=== PATIENT | male | born 1960 | race Caucasian/White ===

== ENCOUNTER → 2019-05-19 15:05 | Outpatient (CLI) | payer SELFPAY ==
[2019-05-19 17:33] LABS: Absolute Lymphocyte Count 0.92 X10^3/uL (0.83-4.51); Absolute Neutrophil Count 3.1 X10^3/uL (2.0-7.7); Basophil# 0.03 X10^3/uL; Basophil% 0.6 % (0-1); Eosinophil# 0.56 X10^3/uL; Hematocrit 45.7 % (40-54); Hemoglobin 14.9 g/dL (13.0-16.5); Lymphocyte # 0.92 X10^3/ul (4.0); Mean Corp Hgb Conc 32.6 g/dL (32-36); Mean Corpuscular Hgb 31.4 pg (27.0-32.0); Mean Corpuscular Volume 96.2 fL (80-94); Mean Platelet Vol. 11.3 fl (6.2-12.0); Monocyte# 0.44 X10^3/uL; Monocyte% 8.6 % (0-10); NRBC Flagged by Analyzer 0 % (0-5); Neutrophil # 3.13 X10^3/uL (2.7-7.7); Neutrophil % 61.4 % (47-70); Platelet Count 278 K/mm3 (150-450); RBC Distribution Width CV 12.9 % (11.6-14.6); RBC Distribution Width SD 46.2 fl (35.1-43.9); Red Blood Count 4.75 M/mm3 (4.6-6.2); White Blood Count 5.1 K/mm3 (4.4-11.0)
[2019-05-19 18:19] LABS: ALB/GLOB Ratio 1.3 RATIO (0.9-2.4); AST(SGOT) 22 U/L (15-37); Alanine Aminotransfer ALT/SGPT 28 U/L (16-61); Albumin, Serum 4.1 g/dL (3.2-5.0); Alkaline Phosphatase 55 U/L (45-117); Anion Gap 8 (5-15); BUN 16 mg/dL (7-18); BUN/Creat Ratio 18.7 RATIO (10-20); CRP < 2.90 mg/L (0.0-3.0); Calcium,Total 9.2 mg/dL (8.5-10.1); Chloride 108 mmol/L (98-107); Creatinine, Serum 0.85 mg/dL (0.70-1.30); EST Glomerular Filtration Rate 97 mL/min (>60); Est Glom Filt Rate - Afr Amer 118 mL/min (>60); Globulin 3.2 g/dL (2.2-4.2); Glucose 71 mg/dL (74-106); Protein, Total 7.3 g/dL (6.4-8.2); Sodium Level 144 mmol/L (136-145); Thyroid Stim Hormone (TSH) 0.81 uIU/mL (0.358-3.74)
[2019-05-21 21:08] LABS: Endomysial Antibody IgA Negative (Negative)
[2019-05-24 13:53] LABS: Immunoglobulin A 114 mg/dL (90-386); t-Transglutaminase IgA <2 U/mL (0-3)
== END ==
PROVIDERS: Family Provider Family Medicine; PCP Family Medicine; Referring Provider Family Medicine; Visit Provider Family Medicine
DX: R19.7 Diarrhea, unspecified (principal)
CPT/HCPCS: 36415; 80053; 82784; 83516; 84443; 85025; 86140; 86255

== ENCOUNTER 2019-06-16 05:47 | Day surgery (SDC) | payer SELFPAY ==
[2019-05-25 08:29] VITALS: BMI 28.2
--- NOTE | 2019-06-05 02:35 | HP_ITS ---
Intake Vital Signs 05/25/19 Height 5 ft 6 in 05/25/19 Weight: 175 lb 05/25/19 Body Mass Index (BMI) 28.2 05/25/19 Blood Pressure 139/61 H 05/25/19 Blood Pressure Location Rt brachial 05/25/19 Respiratory Rate 18 05/25/19 Pulse Rate 96 Intake Visit Reasons: abd pain, bloating with eating, diarrhea Legal Records Manager Required: No Is patient in pain?: Yes (abdominal pain) Allergies No Known Allergies Allergy (Unverified 05/25/19 08:30) Medications NK 05/25/19 [History Confirmed 05/25/19] PFSH Medical History Abdominal pain (Acute) Bilateral inguinal hernia (BIH) (Acute) Diarrhea (Acute) Surgical History S/P inguinal hernia repair (Acute) Family History Mother Breast cancer Sister Thyroid disorder Social History (Updated 06/05/19 @ 14:35 by Lacho Dominguez MD) Smoking Status: Current some day smoker alcohol intake: current alcohol intake frequency: a few times a month HPI HPI HPI: MIRNA ROSE, is a 58 M who presents to the office today for HPI HPI Surgical H&P: Yes HPI: MIRNA ROSE, is a 58 M who presents to the office today for Screening colonoscopy. Patient has never had a colonoscopy in the past. Patient's note that he has been occasionally having some crampy bloating with meals as well as some abdominal pain. He is also noticed some loose diarrhea like stools over the last 8 to 10 months. ROS General General: No weight change, appetite, fatigue, colon cancer, breast cancer or weakness HEENT HEENT: No difficulty swallowing, eye injury, eye surgery, swollen glands or hoarseness Endo Endocrine: No thyroid disease, diabetes mellitus, thyroid cancer, Hair loss, heat intolerance or cold intolerance Skin Skin: No rash or changing moles Breast Breast: No left breast lump, right breast lump, nipple discharge, breast pain, abnormal mammogram, abnormal US or breast enlargement Musc Musculoskeletal: Yes back problems and arthritis; no rheumatoid arthritis, gout or joint pain Cardio Cardiovascular: Yes murmur; no pacemaker, heart disease, atrial fibrillation, high blood pressure, heart attack, heart stent, palpitations, shortness of breat with exertion or chest pain Psych Psychiatric: No depression, anxiety or hearing voices Resp Respiratory: No shortness of breath, No sleep apnea, No cough, No COPD, No asthma, No emphysema, No wheezing Gastro Gastrointestinal: Yes abdominal pain, No nausea or vomiting, Yes diarrhea, No constipation, No blood in stool, No acid reflux, No hemorrhoids, No ulcers, No gallbladder problem, No black,tarry stools Luis Hematologic: No blood thinners, No blood disorders, No bleeding, No anemia, No blood clots Neuro Neurologic: No system reviewed and no additional complaints, except as docu, No as per HPI, No abnormal walking, No abnormal hearing, No abnormal movements, No abnormal speech, No behavioral changes, No burning sensations, No confusion, No seizure-like activity, No unsteadiness, No dizziness, No localized weakness, No frequent falls, No headache(s), No lack of coordination, No loss of vision, No memory loss, Yes numbness, No other visual disturbances, No radiating pain, No restless legs, No sensory deficit, No fainting, Yes tingling, No tremor(s), No weakness, No other Exam Const General: no acute distress, well developed, well hydrated Orientation: oriented to person, oriented to place, oriented to time [facility] Head: normocephalic, atraumatic Ears: external ears normal Mouth: moist mucous membranes Eyes Sclera: sclerae normal Pupils: normal by confrontation Neck Neck: no lymphadenopathy noted Neck mass: No Thyroid: thyroid normal, symmetrical Chest Chest palpation & inspection: normal inspection of the chest Breast Palpation: No nipple discharge Resp Effort & Inspection: normal respiratory effort Auscultation: clear to auscultation bilaterally Percussion: percussion normal Cardio Rate: regular rate Rhythm: regular rhythm Heart Sounds: murmur GI Palpation: soft, no hepatosplenomegaly, no masses, nontender Rectal Exam: other Other: Rectal exam deferred. Extrem General: normal to inspection, no clubbing, cyanosis or edema Assessment & Plan Problems 1. Encounter for screening colonoscopy Z12.11 Plan I have discussed the above with the patient. I have offered the patient colonoscopy for evaluation. I have explained the risks/benefits of the procedure and described the procedure. I have discussed the risks with the patient, including but not limited to: infection, bleeding, perforation of the GI tract requiring emergency surgery, inability to complete the procedure, injury to any internal organs, complications of anesthesia, etc. - the patient understands and agrees to proceed. I have answered all the patient's questions to the patient's satisfaction and the patient has no further questions. The patient has been given instructions for the colon cleansing preparation. We will be doing random colon biopsies. Coding Level of Care Code Off vis,new,level 3 Diagnoses Encounter for screening colonoscopy Z12.11 06/05/19 1436 <Electronically signed by Lacho frazier MD> Date _ Lacho Dominguez MD I have re-examined the patient. There are no clinical changes since date of exam.
[2019-06-16] VITALS (7 sets, daily range): BP systolic 83–135; BP diastolic 70–96; PULSE 75–82; RESP 16–18; TEMP 36.6–36.8; O2SAT 96–100; BMI 25.0
[2019-06-16] MEDS: Lactated Ringers 1,000 ML 75 ML IV (06:10)
--- NOTE | 2019-06-16 07:00 | COLBX_PTH ---
PATIENT: MIRNA ROSE LOC: EN U#:[id number] AGE/SX: 58/M ROOM: RE06/16/[address]: Dr. Lacho Dominguez MD : 1960 BED: DIS: 06/16/2019 SPEC #: [id number] RECD: 06/16/19 10:44 STATUS: JAMES SUMMER #: [id number] JOYCELYN: 06/16/19 07:[address]: Lacho Dominguez DEPT: SURGICAL PATHOLOGY RECD BY: Tang Chacon ENTERED: 06/16/19 11:35 SP TYPE: COLON BX OTHR DR: Dr. Randy Stark MD Tissues: COLON BIOPSY Procedures: Surgery Specimen Level IV HEADER OPERATION: Colonoscopy (MAC) PRE-OP DIAGNOSIS: Abdominal pain, bloating, diarrhea TISSUE SUBMITTED: Random colon biopsies MICROSCOPIC DIAGNOSIS Colon, random biopsy: Fragments of colonic mucosa, no pathologic diagnosis. SJ:russell 9/19/19 MICROSCOPIC DESCRIPTION Slides are reviewed. GROSS DESCRIPTION Received in fixative is one container labeled with the patient's name and designated random colon biopsy. The specimen consists of multiple irregular fragments of light diaz soft tissue that in aggregate measure 2.5 x 0.6 x 0.1 cm. The specimen is totally submitted in one cassette. / SJ:rg 06/16/19 TC:4 CPT: 58986
--- NOTE | 2019-06-16 07:37 | OP.ENDO_ITS ---
06/16/2019 Randy Stark [address] [place] [address] Re : Colonoscopy procedure for Romel Campbell Dear Dr. Stark This procedure was performed on Sunday, June 16, 2019. My impressions and recommendations are as follows: Impressions : - The entire examined colon is normal. Biopsied. - Non-bleeding internal hemorrhoids. - The examination was otherwise normal. Recommendations : - Discharge patient to home. - Resume previous diet. - Continue present medications. - Await pathology results. - Repeat colonoscopy in 10 years for screening purposes. - Return to my office in 1 week. My findings are described in the full procedure note, which is enclosed. If I can be of further assistance, please feel free to contact me at Doctor phone number(s): , Fax: [phone], Work: . Sincerely, MD Lacho De Dios MD 06/16/2019 7:37:28 AM This report has been signed electronically.
== END 2019-06-16 07:30 | disposition home or self-care (01) ==
LOC: EN 05:48 → AC 05:49
PROVIDERS: Family Provider Family Medicine; PCP Family Medicine; Referring Provider Family Medicine; Visit Provider Surgery
PROC: 0DJD8ZZ Inspection of Lower Intestinal Tract, Via Natural or Artificial Opening Endoscopic (ICD-10-PCS; CPT 45378; principal; 2019-06-16 06:55)
DX: Z12.11 Encounter for screening for malignant neoplasm of colon (principal); K64.8 Other hemorrhoids; R10.9 Unspecified abdominal pain; R14.0 Abdominal distension (gaseous); R19.7 Diarrhea, unspecified; R01.1 Cardiac murmur, unspecified; F17.200 Nicotine dependence, unspecified, uncomplicated
CPT/HCPCS: 45380; 88305; J7120

== ENCOUNTER 2019-12-03 12:50 | Observation (INO) | payer SELFPAY ==
[2019-06-16 06:02] VITALS: BMI 25.0
[2019-12-03] VITALS (9 sets, daily range): BP systolic 135–182; BP diastolic 77–115; PULSE 65–100; RESP 15–24; TEMP 36.7–37; O2SAT 97–100; BMI 27.8; BMI 26.4
--- NOTE | 2019-12-03 12:52 | NURSING ---
NO OLD EKGS
--- NOTE | 2019-12-03 13:02 | EKG12_ITS ---
Test Reason : CP Blood Pressure : / mmHG Vent. Rate : 107 BPM Atrial Rate : 107 BPM P-R Int : 204 ms QRS Dur : 096 ms QT Int : 340 ms P-R-T Axes : 064 078 040 degrees QTc Int : 453 ms Sinus tachycardia Otherwise normal ECG Confirmed by CARISA TRAVIS, NAHEED ([id number]), editor magazine NEHEMIAS GRACE ([id number]) on 12/06/2019 3:36:43 PM Referred By: CHARLOTTE Confirmed By:NAHEED YOUNGER MD
--- NOTE | 2019-12-03 13:02 | ED.DCSUM_ITS ---
History of Present Illness Chief Complaint: Chest Pain Narrative: Presents with chest pain is been on and off for about 6 months he has not had it evaluated today it was worse, it was aching with radiation to his left arm. He does have a family history of coronary artery disease, he is hypertensive on the monitor in the room but tells me he has no history of hypertension or hypercholesterolemia but he does not get routine checkups with his doctor. He is a smoker. He is now pain-free Past Medical History - Allergies and Home Meds Allergies/Adverse Reactions: Allergies No Known Allergies Allergy (Verified 07/16/19 14:28) Primary Care Physician: Randy Stark MD [Primary Care Provider] - Past Medical History: - - None diagnosed, however he does not go to a PCP and get routine blood pressure checks or cholesterol screenings. Smoking Status: Current every day smoker Review of Systems General: Denies: Fever Cardiovascular: Reports: Chest pain. Denies: Palpitations, Heart racing Respiratory: Denies: Dyspnea, Cough, Sputum Gastrointestinal: Denies: Abdominal pain, Nausea Musculoskeletal: Denies: Myalgias, Arthralgias Skin: Denies: Rash Neurological: Denies: Headache, Weakness Psych: Denies: Depression Endocrine: Denies: Polyuria Physical Exam Vital Signs/Narrative: Vital Signs Temp Pulse Resp BP Pulse Ox 12/03/19 12:51 98.2 F 100 20 H 182/104 H 100 General: Well nourished, Well developed Eyes: Negative for: Pale conjunctiva ENT: Moist mucous membranes Cardiovascular: Regular rate, Regular rhythm Abdomen: Soft, Nontender, Nondistended Back: Nontender, Normal Inspection Skin: Normal color, No rash Neurological: Alert, Oriented x3 Psychological: Normal affect Diagnostic/Tx/Re-eval - Rhythm Strip Rhythm Strip: Sinus Rhythm Rate: 107 Ectopy: None - EKG Initial EKG Interpretation: - - Sinus rhythm with a rate of 107. Normal [place] interval. Normal QTc interval. No significant ischemic changes seen. - Medical Decision Making Patient has quite a few risk factors, his heart score is a 4 or 5, he will need hospitalization for a inpatient cardiac work-up. ED Disposition - Plan for ED Patient: Disposition: Acute Care Hospital [facility] Referrals: Randy Stark MD [Primary Care Provider] -
--- NOTE | 2019-12-03 13:03 | RAD_ITS ---
STUDY: X-RAY CHEST REASON FOR EXAM: Male, 59 years old. CHEST PAIN, LEFT ARM NUMBNESS AND TINGLING TECHNIQUE: Single AP portable view of the chest. COMPARISON: None. FINDINGS: EKG electrodes are seen. The lungs are clear and expanded. There is no demonstrated pleural abnormality. Normal size heart. Normal mediastinum and kevin. Normal visualized pulmonary arteries. There is atherosclerotic tortuosity of the aortic arch and descending thoracic aorta. There are diffuse degenerative changes of the visualized thoracic spine. Normal visualized ribs, clavicles, and shoulders. There is no demonstrated abnormality of the visualized soft tissue structures of the upper abdomen. RAD/Chest 1 View (Portable) IMPRESSION: No acute abnormality seen. Electronically Signed: Logan Whitt, at 13:18 EST , Service support ,
[2019-12-03 13:12] LABS: Absolute Neutrophil Count 3.4 X10^3/uL (2.0-7.7); Basophil# 0.04 X10^3/uL; Basophil% 0.7 % (0-1); Eosinophil# 0.33 X10^3/uL; Eosinophils% 5.7 % (0-5); Hemoglobin 15.2 g/dL (13.0-16.5); Lymphocyte % 25.7 % (19-41); Mean Corp Hgb Conc 33.8 g/dL (32-36); Mean Corpuscular Hgb 31.9 pg (27.0-32.0); Mean Corpuscular Volume 94.3 fL (80-94); Mean Platelet Vol. 10.5 fl (6.2-12.0); Monocyte# 0.51 X10^3/uL; Monocyte% 8.7 % (0-10); NRBC Flagged by Analyzer 0 % (0-5); Neutrophil # 3.43 X10^3/uL (2.7-7.7); Neutrophil % 58.9 % (47-70); Platelet Count 296 K/mm3 (150-450); RBC Distribution Width CV 12.8 % (11.6-14.6); RBC Distribution Width SD 44.1 fl (35.1-43.9); Red Blood Count 4.77 M/mm3 (4.6-6.2); White Blood Count 5.8 K/mm3 (4.4-11.0)
[2019-12-03] MEDS: Aspirin 81 MG TAB.CHEW 324 MG PO (13:15)
[2019-12-03 13:25] LABS: Anion Gap 6 (5-15); BUN 13 mg/dL (7-18); BUN/Creat Ratio 14.5 RATIO (10-20); Calcium,Total 9.2 mg/dL (8.5-10.1); Chloride 106 mmol/L (98-107); EST Glomerular Filtration Rate 92 mL/min (>60); Est Glom Filt Rate - Afr Amer 111 mL/min (>60); Glucose 89 mg/dL (74-106); Potassium 3.6 mmol/L (3.5-5.1); Sodium Level 139 mmol/L (136-145)
--- NOTE | 2019-12-03 14:13 | NURSING ---
LEANNU OBS NEAL GARCIA
--- NOTE | 2019-12-03 14:44 | NURSING ---
This nurse called Dr. Kirk Reynolds's office in [place] and was told that pt saw Elena Womack DELI ASSOCIATE in the past but has not seen her since February 2018. This nurse called for an updated medicine list as pt told this nurse that he took novolog but can't remember how much and Gabapentin but don't know the dose. [employer] Worker at Dr. Reynolds's office states that there have been no prescriptions given to pt since February 2018.
--- NOTE | 2019-12-03 14:48 | EKG12_ITS ---
Test Reason : CP ADMISSION Blood Pressure : / mmHG Vent. Rate : 088 BPM Atrial Rate : 088 BPM P-R Int : 214 ms QRS Dur : 092 ms QT Int : 344 ms P-R-T Axes : 050 061 028 degrees QTc Int : 416 ms Sinus rhythm with 1st degree A-V block Otherwise normal ECG Confirmed by MATTHIEU TRAVIS, DUONG ([id number]), supervising editor trailer NEHEMIAS GRACE ([id number]) on 12/08/2019 10:47:08 AM Referred By: JOSE Confirmed By:DUONG SOMMERS MD
--- NOTE | 2019-12-03 15:47 | NURSING ---
Pt educated on Stress test tomorrow, Troponin levels and what time they will be coming to draw, and also to call and notify Nursing Staff if starts to have Chest pain while he is here. Pt understands.
--- NOTE | 2019-12-03 16:56 | CHAPLAIN ---
Type of Pastoral Visit _x__ Initial Visit ___ Follow-up Visit ___ On-call Visit ___ General Patient Visit ___ Spiritual Assessment ___ Family Conference ___ Bereavement ___ Rapid Response ___ Code Blue ___ Other (describe below) Pastoral Care Referral From _x__ Patient ___ Family ___ Nurse ___ Physician ___ Social Scientist ___ Baby Formula Worker ___ Other (describe below) Sacrament/Intervention _x__ Active listening ___ Anointing ___ Congregation ___ Bereavement ___ Communion _x__ Annette exploration ___ _x__ Life review _x__ Prayer ___ Reconciliation ___ Sacrament of Sick ___ Supportive presence ___ Wedding ___ Other (describe below) Pastoral Comments
--- NOTE | 2019-12-03 18:22 | PCM.HP.STD ---
Problem List (1) Chest pain Status: Acute Qualifiers: Chest pain type: precordial pain Qualified Code(s): R07.2 - Precordial pain History of Present Illness Date of Admission: 12/03/19 Chief Complaint: Chest pain The patient is a 59 year old M who was seen in the emergency room at [facility] with a chief complaint of chest discomfort which comes and goes over the last several days. Patient states that the chest discomfort feels like an ache, and last anywhere from 5 to 10 minutes, it is not brought on by any particular activity. Patient states that occasionally goes down his left arm which causes tingling, he does not complain any shortness of breath or diaphoresis. Patient had his last episode at 11 AM this morning, it lasted approximately 5 minutes. Work-up in the emergency room included a chest x-ray which was unremarkable, EKG showed normal sinus rhythm without evidence of ischemic changes, patient had a troponin drawn which was normal. Chemistry panel was unremarkable, CBC was unremarkable. Patient will be placed in observation status on PCU and serial enzymes will be obtained, he will undergo a nuclear stress test by treadmill tomorrow if his enzymes remain negative. Past Medical History Medical History: Medical History (Last Reviewed 07/16/19 @ 14:28 by Deborah Valdes) Bilateral inguinal hernia (BIH) (Resolved) K40.20 Diarrhea (Resolved) R19.7 Abdominal pain (Resolved) R10.9 Allergies No Known Allergies Allergy (Verified 07/16/19 14:28) Home Medications: Ambulatory Orders Medication Instructions Recorded NK 05/25/19 Surgical History: Surgical History (Last Reviewed 07/16/19 @ 14:28 by Deborah Valdes) Hx of colonoscopy (Inactive) Z98.890 07/16/2019 S/P inguinal hernia repair (Inactive) Z98.890, Z87.19 1988 Surgical History: herniorrhaphy, - - Vasectomy, carpal tunnel surgery Psychiatric History: No pertinent psych hx Lives: Alone Smoking Status: Current every day smoker Tobacco Use: Cigarettes Alcohol: Occasional Drugs: None - *Family History Maternal Family History: Family History (Last Reviewed 07/16/19 @ 14:28 by Deborah Valdes) Mother Breast cancer Sister Thyroid disorder History Items: Cancer - Breast cancer Paternal Family History: Family History (Last Reviewed 07/16/19 @ 14:28 by Deborah Valdes) Mother Breast cancer Sister Thyroid disorder History Items: Heart Disease Review of Systems Constitutional: Denies: Anorexia, Chills, Fever, Night Sweats, Malaise, Weakness, Weight Change, Fatigue Eyes: Denies: Cataracts, Conjunctivae Inflammation, Double vision, Drainage HEENT: Denies: Difficulty Swallowing, Dysphasia, Ear Pain, Eye Pain, Hearing Changes, Nasal bleeding, Nasal Congestion, Post Nasal Drip Cardiovascular: Reports: Chest Pain, - - Describes chest pain as ache. Denies: Claudication, Chest Pressure, Chest Tightness, Edema, Heaviness, Orthopnea, Palpitations, Paroxysmal Noc. Dyspnea Respiratory: Denies: Cough, Hemoptysis, Pleuritic Pain, Shortness of Breath, Shortness of breath at rest, Shortness of breath upon exertion, Sputum production, Wheezing Gastrointestinal: Denies: Abdominal Pain, Constipation, Diarrhea, Hematemesis, Hematochezia, Nausea, Melena, Vomiting Genitourinary: Denies: Dysuria, Frequency, Hematuria, Hesitancy, Nocturia, Retention, Urgency Musculoskeletal: Denies: Back Pain, Foot Pain, Hand Pain, Joint Pain, Joint stiffness, Joint swelling, Joint Tenderness, Leg Pain Skin: Denies: Dryness, Jaundice, Pruritis, Rash Neurological: Denies: Balance problems, Blurred vision, Double vision, Slurred speech, Difficulty swallowing, Focal weakness, Headaches, Incoordination, Numbness, Tingling Psychiatric: Denies: Anxiety, Depression, Homicidal Ideations, Suicidal Ideations Endocrine: Denies: Change in Body Habitus, Heat/ Cold Intolerance, Polydipsia, Polyuria Hematologic/ Lymphatic: Denies: Adenopathy, Anemia, Easy Bruising, Easy Bleeding, Petechiae, Purpura VTE Information - Inpt Only VTE Present on Admission: No VTE Mechan Device Prophylaxis: None VTE Pharm Prophylaxis ordered?: No Reason prophylaxis not ordered:: Treatment Not Indicated Patient Problems: Active and Suspected Problems (Last Updated 12/03/19 @ 18:[address] Teo Alemna, DO) Chest pain (Acute) - Physical Exam Vitals/I&O's: Vital Signs Temp Pulse Resp BP Pulse Ox 98.6 F 99 23 H 149/109 H 97 12/03/19 14:46 12/03/19 14:46 12/03/19 14:46 12/03/19 14:46 12/03/19 14:50 Oxygen Delivery Method Room Air Weight: 76.5 kg Body Mass Index (BMI) 26.4 Intake and Output for Last 24 Hours 12/01/19 12/02/19 12/03/19 23:59 23:59 23:59 Intake Total 500 / 500 Balance 500 / 500 General: Alert, Oriented x3, Cooperative, No apparent distress, Well developed, Well nourished HEENT: Atraumatic, PERRLA, EOMI, Normocephalic Oral: Moist Mucosa Neck: Supple, No JVD, Negative Carotid Bruits, Trachea Midline, Thyroid Normal Size and Texture Lungs: Clear to auscultation, Normal air movement, No rhonchi, No wheeze, No rales Cardiovascular: Regular rate, Regular Rhythm, Normal S1, Normal S2, No murmurs, PMI Normal, No rub noted, No Gallop Abdomen: Bowel Sounds Present, Soft, Non Tender, Non-Distended, No hernias noted Extremities: No clubbing, No cyanosis, No edema, Capillary Refill Less than 3 Seconds Skin: No rashes, No breakdown Musculoskeletal: No Tenderness to Palpation of Joints or Extremities Neurological: Cranial nerves II-XII grossly intact, Neuro grossly intact, Sensory exam intact to light touch and pain, Coordination normal Psych/Mental Status: Normal Affect, Appropriate, Alert and oriented to time, place, person, mood and affect Laboratory Results 12/03/19 12:50: WBC 5.8, RBC 4.77, Hgb 15.2, Hct 45.0, MCV 94.3 H, MCH 31.9, MCHC 33.8, RDW Std Deviation 44.1 H, RDW Coeff of Dustin 12.8, Plt Count 296, MPV 10.5, Immature Gran % (Auto) 0.300, Neut % (Auto) 58.9, Lymph % (Auto) 25.7, [place] % (Auto) 8.7, Eos % (Auto) 5.7 H, Baso % (Auto) 0.7, Absolute Neuts (auto) 3.4, Absolute Lymphs (auto) 1.50, Nucleated RBC % 0 12/03/19 12:50: Sodium 139, Potassium 3.6, Chloride 106, Carbon Dioxide 27.0, Anion Gap 6, BUN 13, Creatinine 0.90, Estim Creat Clear Calc 81.60, Est GFR (MDRD) Af Amer 111, Est GFR (MDRD) Non-Af 92, BUN/Creatinine Ratio 14.5, Glucose 89, Calcium 9.2, Troponin I < 0.015 12/03/19 15:57: Troponin I < 0.015 Current Medications Morphine Sulfate () 4 mg IV Q3H PRN PRN PRN Reason: Pain Score 6-10/10 Sodium Chloride () 10 - 40 ml IV UD PRN PRN Reason: SALINE FLUSH Assessment/Plan All Active Problems (Last Updated 12/03/19 @ 18:[address] Teo Aleman, DO) Chest pain (Acute) Bilateral inguinal hernia (BIH) (Resolved) Diarrhea (Resolved) Abdominal pain (Resolved) #1 chest pain-etiology unclear at this point, patient will be placed into observation status on PCU, serial isoenzymes will be obtained, if these remain negative patient will undergo an exercise nuclear stress test tomorrow on a treadmill. OBSV E&M: [id number] Initial observation care L3
[2019-12-04 02:30] VITALS: BP 119/74; PULSE 62; RESP 18; TEMP 36.4; O2SAT 97
[2019-12-04 03:03] VITALS: PULSE 61
[2019-12-04 05:16] VITALS: BP 119/82; PULSE 69; RESP 16; TEMP 36.5; O2SAT 97
--- NOTE | 2019-12-04 05:18 | EKG12_ITS ---
Test Reason : AM EKG Blood Pressure : / mmHG Vent. Rate : 069 BPM Atrial Rate : 069 BPM P-R Int : 226 ms QRS Dur : 092 ms QT Int : 382 ms P-R-T Axes : 064 076 048 degrees QTc Int : 409 ms Sinus rhythm with 1st degree A-V block Otherwise normal ECG Confirmed by MATTHIEU TRAVIS, DUONG ([id number]), deputy editor in chief SAMM RUTH ([id number]) on 12/08/2019 10:04:07 AM Referred By: JOSE Confirmed By:DUONG SOMMERS MD
[2019-12-04 11:16] VITALS: BP 127/89; PULSE 87; RESP 18; TEMP 36.8; O2SAT 97
--- NOTE | 2019-12-04 11:16 | STRESSREP ---
Stress Test Report Exercise myocardial perfusion stress test. 59-year-old man with a history of chest pain. Stress protocol: Resting KG demonstrates normal sinus rhythm with a rate of 78 bpm normal intervals are noted. The patient exercised according to regular Mike protocol for a total duration of 10 minutes. The maximum heart rate attained was 153 bpm which was 95% of maximum predicted heart rate. Patient completed 1 minute into stage IV of the Mike protocol. The maximum workload was 11.7 metabolic equivalents. At rest there were no ST or T wave changes noted suggest ischemia peak exercise upsloping ST changes only were noted with no meet the criteria for ischemia. The resting blood pressures 150/84 with a peak blood pressure 160/90 mmHg rate-pressure product was 22,500. No clinical angina was noted the test was terminated due to the target heart rate being achieved. Myocardial perfusion protocol. 12.0 mCi of technetium 99m sestamibi was injected at rest. The patient exercised according to regular Mike protocol for 10 minutes at peak exercise 36.0 mCi of technetium 99m sestamibi was injected stress images were obtained stress and rest images were reconstructed in comparing the short axis vertical long horizontal long axis. Gated images also obtained Perfusion SPECT analysis: Review of the stress images demonstrate normal uptake of tracer noted in all areas of the myocardium the resting images similarly demonstrate normal uptake of tracer noted in all areas of the myocardium. No reversibility is noted suggest ischemia no previous infarct is noted. Gated SPECT analysis: The gated ejection fraction is noted to be 61%. Conclusion: Normal exercise myocardial perfusion stress test at a high workload. Preserved ejection fraction.
--- NOTE | 2019-12-04 11:32 | DCINST_ITS ---
- Discharge Diagnoses Current Active Problems: Current Active and Chronic Problems (Last Updated 12/03/19 @ 18:[address] Teo Aleman, DO) Chest pain (Acute) You will use the following diet at home:: Regular Your food should be the consistency of: Regular Your liquids should be the consistency of: Regular/Thin Discharge Activity: Return to Normal Activity Call your doctor if you observe: Fever of 101 or Higher, Shortness of breath, Dizziness, Fainting spells, Swelling in the ankles, Chest pain, Increased palpitations (irregular heartbeat) Allergies/Adverse Reactions: Allergies No Known Allergies Allergy (Verified 07/16/19 14:28) Medications to take at Discharge NK 05/25/19 Primary Care Physician: Randy Stark MD [Primary Care Provider] - Please follow up with your Primary Care Physician in: 3-5 days Test Results: Test results from this visit will be discussed in further detail at your follow- up appointment, if applicable.
--- NOTE | 2019-12-04 11:33 | DS.PCM_ITS ---
Discharge Date and Diagnosis - Problem List Patient Problems: Active and Suspected Problems (Last Updated 12/03/19 @ 18:[address] Teo Aleman DO) Chest pain (Acute) Date of Admission: 12/03/19 Date of Discharge: 12/04/19 - Primary Discharge Diagnosis Active and Suspected Problems (Last Updated 12/03/19 @ 18:[address] Teo Aleman DO) Chest pain (Acute) Hospital Course and Treatment Imaging Results: CXR: IMPRESSION: No acute abnormality seen. Stress Test Report Exercise myocardial perfusion stress test. 59-year-old man with a history of chest pain. Stress protocol: Resting KG demonstrates normal sinus rhythm with a rate of 78 bpm normal intervals are noted. The patient exercised according to regular Mike protocol for a total duration of 10 minutes. The maximum heart rate attained was 153 bpm which was 95% of maximum predicted heart rate. Patient completed 1 minute into stage IV of the Mike protocol. The maximum workload was 11.7 metabolic equivalents. At rest there were no ST or T wave changes noted suggest ischemia peak exercise upsloping ST changes only were noted with no meet the criteria for ischemia. The resting blood pressures 150/84 with a peak blood pressure 160/90 mmHg rate-pressure product was 22,500. No clinical angina was noted the test was terminated due to the target heart rate being achieved. Myocardial perfusion protocol. 12.0 mCi of technetium 99m sestamibi was injected at rest. The patient exercised according to regular Mike protocol for 10 minutes at peak exercise 3 6.0 mCi of technetium 99m sestamibi was injected stress images were obtained stress and rest images were reconstructed in comparing the short axis vertical long horizontal long axis. Gated images also obtained Perfusion SPECT analysis: Review of the stress images demonstrate normal uptake of tracer noted in all areas of the myocardium the resting images similarly demonstrate normal uptake of tracer noted in all areas of the myocardium. No reversibility is noted suggest ischemia no previous infarct is noted. Gated SPECT analysis: The gated ejection fraction is noted to be 61%. Conclusion: Normal exercise myocardial perfusion stress test at a high workload. Preserved ejection fraction. Consults: None Operations: None Procedures: Nuclear stress test Summary of Care Provided: Per HPI: The patient is a 59 year old M who was seen in the emergency room at [facility] with a chief complaint of chest discomfort which comes and goes over the last several days. Patient states that the chest discomfort feels like an ache, and last anywhere from 5 to 10 minutes, it is not brought on by any particular activity. Patient states that occasionally goes down his left arm which causes tingling, he does not complain any shortness of breath or diaphoresis. Patient had his last episode at 11 AM this morning, it lasted approximately 5 minutes. Work-up in the emergency room included a chest x-ray which was unremarkable, EKG showed normal sinus rhythm without evidence of ischemic changes, patient had a troponin drawn which was normal. Chemistry panel was unremarkable, CBC was unremarkable. Patient will be placed in observation status on PCU and serial enzymes will be obtained, he will undergo a nuclear stress test by treadmill tomorrow if his enzymes remain negative. Hospital Course: 1. Chest [id number] male with no significant past medical history presents with chest pain has been on and off for the last 6 months, he presents to the ER because it was worse with radiation to his left arm. He does have a family history of coronary disease but he has no medical risk factors other than smoking. He had 3- troponins and 2 normal EKGs that were nonischemic. He underwent a nuclear exercise stress test today and that was unremarkable. He was discharged home with outpatient follow-up. I discussed with him the risk benefits of going home and he expressed understanding. It is important that he quit smoking, and cessation was discussed on admission. Patient Problems: Active and Suspected Problems (Last Updated 12/03/19 @ 18:[address] Teo Aleman, DO) Chest pain (Acute) - Physical Exam Vitals/I&O's: Vital Signs Temp Pulse Resp BP Pulse Ox 97.7 F L 69 16 119/82 H 97 12/04/19 05:16 12/04/19 05:16 12/04/19 05:16 12/04/19 05:16 12/04/19 05:16 Oxygen Delivery Method Room Air Weight: 168 lb 10.458 oz Body Mass Index (BMI) 26.4 Intake and Output for Last 24 Hours 12/02/19 12/03/19 12/04/19 23:59 23:59 23:59 Intake Total 1237 / 1237 415 / 415 Balance 1237 / 1237 415 / 415 General: Alert, Oriented x3, Cooperative, No apparent distress HEENT: Atraumatic, PERRLA, EOMI, Normocephalic Oral: Moist Mucosa Neck: Supple, No JVD Lungs: Clear to auscultation, Normal air movement, No rhonchi, No wheeze, No rales Cardiovascular: Regular rate, Regular Rhythm, Normal S1, Normal S2, No murmurs Abdomen: Soft, Non Tender, Non-Distended, No Hepato-splenomegaly Extremities: No edema, Capillary Refill Less than 3 Seconds Skin: No rashes, No breakdown Neurological: Neuro grossly intact, Sensory exam intact to light touch and pain Psych/Mental Status: Normal Affect, Appropriate Laboratory Results 12/03/19 12:50: WBC 5.8, RBC 4.77, Hgb 15.2, Hct 45.0, MCV 94.3 H, MCH 31.9, MCHC 33.8, RDW Std Deviation 44.1 H, RDW Coeff of Dustin 12.8, Plt Count 296, MPV 10.5, Immature Gran % (Auto) 0.300, Neut % (Auto) 58.9, Lymph % (Auto) 25.7, [place] % (Auto) 8.7, Eos % (Auto) 5.7 H, Baso % (Auto) 0.7, Absolute Neuts (auto) 3.4, Absolute Lymphs (auto) 1.50, Nucleated RBC % 0 12/03/19 12:50: Sodium 139, Potassium 3.6, Chloride 106, Carbon Dioxide 27.0, Anion Gap 6, BUN 13, Creatinine 0.90, Estim Creat Clear Calc 81.60, Est GFR (MDR D) Af Amer 111, Est GFR (MDRD) Non-Af 92, BUN/Creatinine Ratio 14.5, Glucose 89, Calcium 9.2, Troponin I < 0.015 12/03/19 15:57: Troponin I < 0.015 12/03/19 18:50: Troponin I < 0.015 Current Medications Morphine Sulfate () 4 mg IV Q3H PRN PRN PRN Reason: Pain Score 6-10/10 Sodium Chloride () 10 - 40 ml IV UD PRN PRN Reason: SALINE FLUSH Discharge Activity: Return to Normal Activity Call your doctor if you observe: Fever of 101 or Higher, Shortness of breath, Dizziness, Fainting spells, Swelling in the ankles, Chest pain, Increased palpitations (irregular heartbeat) Home Medications: Medications to take at Discharge NK 05/25/19 Primary Care Physician: Randy Stark MD [Primary Care Provider] - Please follow up with your Primary Care Physician in: 3-5 days Disposition: Home Minutes spent on discharge:: 35 Patient Condition:: Stable Medical Necessity - Tobacco Use Smoking Status: Current every day smoker Tobacco Use: Cigarettes Meaningful Use Info Meaningful Use Diagnoses (Choose all that apply): None applicable OBSV E&M: 76807 Observation care discharge
== END 2019-12-04 11:33 | disposition home or self-care (01) ==
LOC: ED 13:14 → PCU 16:07
PROVIDERS: Admitting Provider Internal Medicine; Emergency Provider Emergency Medicine; PCP Family Medicine; Visit Provider Family Medicine
DX: R07.89 Other chest pain (principal); F17.210 Nicotine dependence, cigarettes, uncomplicated; R20.2 Paresthesia of skin; R20.0 Anesthesia of skin
CPT/HCPCS: 36415; 71045; 78452; 80048; 84484; 85025; 93005; 93017; 99218; 99284; 99406; A9500; A4216; G0378

== ENCOUNTER → 2025-01-04 | Outpatient (CLI) | payer MEDICARE, SELFPAY ==
[2025-01-04 08:24] LABS: Bacteria 0 SEEN /hpf (None Seen); Mucous, Urine 0 SEEN /hpf (<or=2+); Red Blood Cells-Urine 0 SEEN /hpf (0-5); Squamous Epithelial Cells - UA 0 SEEN /hpf (0-5); White Blood Cells 0 SEEN /hpf (0-5)
[2025-01-04 08:56] LABS: Absolute Lymphocyte Count 0.84 X10^3/uL (0.83-4.51); Absolute Neutrophil Count 5.1 X10^3/uL (2.0-7.7); Basophil# 0.04 X10^3/uL; Basophil% 0.6 % (0-1); Eosinophil# 0.34 X10^3/uL; Eosinophils% 4.9 % (0-5); Hemoglobin 15.4 g/dL (13.0-16.5); Lymphocyte # 0.84 X10^3/ul (0.83-4.51); Lymphocyte % 12.1 % (19-41); Mean Corp Hgb Conc 34.2 g/dL (32-36); Mean Corpuscular Hgb 32.9 pg (27.0-32.0); Mean Corpuscular Volume 96.2 fL (80-94); Mean Platelet Vol. 10.3 fl (6.2-12.0); Monocyte# 0.61 X10^3/uL; Monocyte% 8.8 % (0-10); NRBC Flagged by Analyzer 0 % (0-5); Neutrophil # 5.05 X10^3/uL (2.7-7.7); Platelet Count 279 K/mm3 (150-450); RBC Distribution Width CV 13.4 % (11.6-14.6); RBC Distribution Width SD 47.8 fl (35.1-43.9); Red Blood Count 4.68 M/mm3 (4.6-6.2); White Blood Count 6.9 K/mm3 (4.4-11.0)
[2025-01-04 09:24] LABS: Color, Urine Straw (Yellow); Glucose, Dipstick Normal (Normal); Ketone-Dipstick Negative (Negative); Leukocyte Esterase-Dipstick Negative /ul (Negative); Nitrite-Dipstick Negative (Negative); Occult Blood-Urine Negative /ul (Negative); Protein-Dipstick Negative (Negative); Specific Gravity, Urine 1.015 (1.002-1.030); Urine Bilirubin Dipstick Negative (Negative); Urine Clarity Clear (Clear); Urine Urobilinogen Normal (Normal)
[2025-01-04 09:55] LABS: ALB/GLOB Ratio 1.9 RATIO (0.9-2.4); AST(SGOT) 28 U/L (<=37); Alanine Aminotransfer ALT/SGPT 22 U/L (<=46); Albumin, Serum 4.5 g/dL (3.4-4.8); Alkaline Phosphatase 69 U/L (40-129); Anion Gap 12 (5-15); BUN 10 mg/dL (4-19); Carbon Dioxide 23.8 mmol/L (21.0-32.0); Chloride 103 mmol/L (98-108); Cholesterol 196 mg/dL (<=200); Creatinine, Serum 0.82 mg/dL (0.70-1.20); EST Glomerular Filtration Rate 98 (>60); Globulin 2.4 g/dL (2.2-4.2); Glucose 94 mg/dL (70-99); High Density Lipoprotein 108 mg/dL; Low Density Lipoprotein Calc. 69 mg/dL; Potassium 4.6 mmol/L (3.3-5.1); Protein, Total 6.9 g/dL (5.9-8.4); Sodium Level 139 mmol/L (133-145); Total Bilirubin 0.87 mg/dL (0.00-1.30); Triglycerides 96 mg/dL; Very Low Density Lipoprotein 19 mg/dL (5-40); cholesterol:hdl ratio screen 1.81
== END | disposition home or self-care (01) ==
PROVIDERS: PCP Family Medicine; Referring Provider Family Medicine; Visit Provider Family Medicine
DX: K58.9 Irritable bowel syndrome, unspecified (principal); Z12.5 Encounter for screening for malignant neoplasm of prostate; Z77.098 Contact with and (suspected) exposure to other hazardous, chiefly nonmedicinal, chemicals; Z13.220 Encounter for screening for lipoid disorders; Z72.0 Tobacco use
CPT/HCPCS: 36415; 80053; 80061; 81001; 84153; 85025; G0103

== ENCOUNTER → 2025-02-05 | Outpatient (CLI) | payer MEDICARE, SELFPAY ==
--- NOTE | 2025-02-05 07:55 | CT_ITS ---
PROCEDURE: LOW DOSE CT LUNG SCREENING 02/05/2025 REASON FOR EXAM: TOBACCO USE TECHNIQUE: Low Dose CT Lung screening without contrast. Coronal and Sagittal reconstruction series were provided. One or more dose reduction techniques were used (e.g., Automated exposure control, adjustment of the mA and/or kV according to patient size, use of iterative reconstruction technique). REFERENCE LINK: [employer] Lung-RADS RADIATION DOSE SUMMARY: CTDlvol: 3.02 mGy DLP: 105 mGycm COMPARISON: None. FINDINGS: PULMONARY NODULES: (Only nodules >3mm are reported) Nodules described below are on series 2 unless otherwise specified. Well-defined subpleural nodular atelectasis in the right upper lobe measuring 1.4 x 1.2 cm. Ectatic ascending aorta measuring 4.38. Normal unenhanced main pulmonary artery and right and left pulmonary arteries. Normal bilateral peripheral pulmonary arteries. Mild atheromatous plaques of the thoracic aorta and visualized great vessels. Normal heart and pericardium. Normal mediastinum. Normal hilar regions. Normal visualized trachea and bronchi. The remaining lungs are well expanded. Normal remaining pulmonary parenchyma. Normal pleura. Mild diffuse spondylosis. 2.4 cm cyst in the right hepatic lobe. Normal remaining visualized upper abdomen. CT/Low Dose CT Lung Screening IMPRESSION: Coronary artery calcification (CAC) is is absent Lung-RADS Category: 2. Other Significant Findings: None. Reading Location: [place] [id number]
== END | disposition home or self-care (01) ==
LOC: CT 07:50
PROVIDERS: PCP Family Medicine; Referring Provider Family Medicine; Visit Provider Family Medicine
DX: Z12.2 Encounter for screening for malignant neoplasm of respiratory organs (principal); Z87.891 Personal history of nicotine dependence
CPT/HCPCS: 71271

== ENCOUNTER → 2025-08-04 | Outpatient (CLI) | payer MEDICARE, SELFPAY ==
[2025-08-04 13:20] LABS: Creatinine, Urine (random) 37.70 mg/dL (39.00-259.00); Microalbumin,Random Urine 39.2 mg/L (<20 mg/L)
[2025-08-04 13:47] LABS: AST(SGOT) 25 U/L (<=37); Alanine Aminotransfer ALT/SGPT 19 U/L (<=46); Albumin, Serum 4.4 g/dL (3.4-4.8); Alkaline Phosphatase 60 U/L (40-129); Anion Gap 11 (5-15); BUN 12 mg/dL (4-19); BUN/Creat Ratio 15.7 RATIO (10-20); Calcium,Total 9.6 mg/dL (7.6-11.0); Carbon Dioxide 24.1 mmol/L (21.0-32.0); Chloride 107 mmol/L (98-108); Cholesterol 175 mg/dL (<=200); Globulin 2.4 g/dL (2.2-4.2); Glucose 87 mg/dL (70-99); Low Density Lipoprotein Calc. 77 mg/dL; Potassium 4.1 mmol/L (3.3-5.1); Triglycerides 81 mg/dL; Very Low Density Lipoprotein 16 mg/dL (5-40); cholesterol:hdl ratio screen 2.10
== END | disposition home or self-care (01) ==
LOC: LAB 12:20
PROVIDERS: PCP Family Medicine; Referring Provider Family Medicine; Visit Provider Family Medicine
DX: I10 Essential (primary) hypertension (principal)
CPT/HCPCS: 36415; 80053; 80061; 82043; 82570